=== PATIENT | female | born 1975 | race Caucasian/White ===

== ENCOUNTER → 2017-04-09 | Outpatient (CLI) | payer BC ==
[2004-09-27 06:30] VITALS: TEMP 97.9
== END ==
LOC: MC.RAD 13:20
DX: Z12.31 Encounter for screening mammogram for malignant neoplasm of breast (principal)

== ENCOUNTER → 2018-07-04 | Outpatient (CLI) | payer BC ==
[2004-09-27 06:30] VITALS: TEMP 97.9
== END ==
LOC: MC.RAD 11:32
DX: Z12.31 Encounter for screening mammogram for malignant neoplasm of breast (principal)

== ENCOUNTER → 2020-05-30 | Outpatient (CLI) | payer BC ==
[2004-09-27 06:30] VITALS: TEMP 97.9
== END ==
LOC: MC.RAD 11:28
DX: Z12.31 Encounter for screening mammogram for malignant neoplasm of breast (principal)

== ENCOUNTER → 2021-05-24 | Outpatient (CLI) | payer BC ==
[2004-09-27 06:30] VITALS: TEMP 97.9
== END ==
LOC: MC.RAD 13:33
DX: Z12.31 Encounter for screening mammogram for malignant neoplasm of breast (principal); N64.89 Other specified disorders of breast

== ENCOUNTER → 2021-05-26 | Outpatient (CLI) | payer BC ==
[2004-09-27 06:30] VITALS: TEMP 97.9
== END ==
LOC: MC.RAD 12:30
DX: N64.89 Other specified disorders of breast (principal)

== ENCOUNTER → 2021-06-14 | Outpatient (CLI) | payer BC ==
[2004-09-27 06:30] VITALS: TEMP 97.9
== END ==
LOC: MC.RAD 05-31 11:30
DX: R92.0 Mammographic microcalcification found on diagnostic imaging of breast (principal)
CPT/HCPCS: 30634

== ENCOUNTER → 2021-11-23 | Outpatient (CLI) | payer BC ==
[2004-09-27 06:30] VITALS: TEMP 97.9
== END ==
LOC: MC.RAD 10:00
DX: N60.01 Solitary cyst of right breast (principal)

== ENCOUNTER → 2022-01-03 | Outpatient (CLI) | payer BC ==
[2004-09-27 06:30] VITALS: TEMP 97.9
== END ==
LOC: MC.RAD 12-19 08:00
DX: N63.10 Unspecified lump in the right breast, unspecified quadrant (principal); Z98.890 Other specified postprocedural states

== ENCOUNTER → 2024-07-21 | Outpatient (CLI) | payer BC ==
[2004-09-27 06:30] VITALS: BP 149/85; PULSE 84; TEMP 97.9
== END ==
LOC: MC.RAD 09:39
DX: Z12.31 Encounter for screening mammogram for malignant neoplasm of breast (principal)